=== PATIENT | male | born 1980 | race African-American/Black ===

== ENCOUNTER 2020-11-05 16:42 | Observation (INO) ==
[2020-11-05] MEDS ORDERED: SODIUM CHLORIDE 0.9% 1,000 ML IV STA (17:06)
[2020-11-05] MEDS ORDERED: LORazepam 2 MG/1 ML VIAL IV STA (17:06)
[2020-11-05 17:18] LABS: Basophils # 0.1 10*3/uL (0.0-0.2); Basophils % 1.3 % (0.0-0.8); Eosinophils % 0.3 % (0.00-10.9); Hematocrit 43.3 VOL% (42.0-52.0); Hemoglobin 14.7 GM/DL (14.0-18.0); Immature Granulocytes % 0.4 %; Immature Granulocytes Absolute 0.04 #; Lymphocytes % 20.9 % (21.2-54.2); Mean Corpuscular HGB Conc 33.9 GM/DL (32-36); Mean Corpuscular Volume 96.4 FL (87-102); Mean Platelet Volume 9.1 FL (9.6-12.0); Monocytes % 9.7 % (1.7-12.7); Neutrophils % 67.4 % (38.7-73.9); Platelet Count 391 T/CUMM (130-400); Red Blood Count 4.49 MC/CUMM (3.8-5.5); Red Cell Distribution Width 12.5 % (9.3-17.3); White Blood Count 9.5 T/CUMM (4-12)
[2020-11-05 17:37] LABS: Bilirubin,Total 1.2 MG/DL (0.2-1.0); Osmolality,Calculated 273.7 MOS/KG (273-304); Potassium 3.3 MMOL/L (3.5-5.1); Total Protein 9.6 G/DL (6.4-8.3)
[2020-11-05 18:08] LABS: ABG Base Excess -4.9 MMOL/L (-2.5-2.5); ABG HCO3 20.4 MMOL/L (20-26); ABG Oxygen Saturation 98.4 % (95-100); ABG PCO2 26.1 MM HG (35-48); ABG PH 7.441 (7.35-7.45); ABG TCO2 15.6 MMOL/L (23-27); Allen Test Positive; Pt O2 Delivery Device Room Air
[2020-11-05 19:04] LABS: Barbiturates Screen,Urine Negative (Negative); Benzodiazepines Screen,Urine Negative (Negative); Cannabinoid Screen,Urine Negative (Negative); Opiate Screen,Urine Negative (Negative); Phencyclidine Screen,Urine Negative (Negative)
[2020-11-05] MEDS ORDERED: DEXTROSE 50% 25 GM/50 ML VIAL IV PRN (19:48)
[2020-11-05] MEDS ORDERED: DOCUSATE SODIUM 100 MG CAPSULE PO PRN (19:48)
[2020-11-05] MEDS ORDERED: ACETAMINOPHEN 325 MG TABLET PO PRN (19:48)
[2020-11-05] MEDS ORDERED: ZALEPLON 5 MG CAPSULE PO PRN (19:48)
[2020-11-05] MEDS ORDERED: GLUCAGON 1 MG VIAL IM PRN (19:48)
[2020-11-05] MEDS ORDERED: SIMETHICONE CHEW 125 MG TABLET PO PRN (19:48)
[2020-11-05] MEDS ORDERED: diphenhydrAMINE CAP 25 MG CAPSULE PO PRN (19:48)
[2020-11-05] MEDS ORDERED: hydrALAZINE 20 MG/1 ML VIAL IV PRN (19:48)
[2020-11-05] MEDS ORDERED: CALCIUM CARBONATE CHEW 500 MG TABLET PO PRN (19:48)
[2020-11-05] MEDS ORDERED: ONDANSETRON 4 MG/2 ML VIAL IV PRN (19:48)
[2020-11-05] MEDS ORDERED: ALBUTEROL 2.5 MG/3 ML NEB RESP TX PRN (19:48)
[2020-11-05] MEDS ORDERED: NICOTINE 21 MG/24 HR PATCH TRANSDERM PRN (19:48)
[2020-11-05] MEDS ORDERED: ALUMINUM/MAGNES/SIMETH MAX STR 30 ML UDCUP PO PRN (19:48)
[2020-11-05] MEDS ORDERED: guaiFENesin/DM ER 600-30 MG TABLET PO PRN (19:48)
[2020-11-05] MEDS ORDERED: ASPIRIN 325 MG TABLET PO STA (19:52)
[2020-11-05] MEDS ORDERED: NITROGLYCERIN 2% OINT 1 INCH/GM PACK TOP STA (19:52)
[2020-11-05] MEDS: SODIUM CHLORIDE 0.9% 1,000 ML IV SCH (21:21)
[2020-11-05] MEDS: ENOXAPARIN 40 MG/0.4 ML SYRINGE SUBCUT SCH (22:19)
[2020-11-05] MEDS: FOLIC ACID 1 MG TABLET PO SCH (22:19)
[2020-11-05] MEDS: POTASSIUM CHLORIDE 20 MEQ TABLET PO SCH (22:19)
[2020-11-05] MEDS: CYANOCOBALAMIN 100 MCG TABLET PO SCH (22:19)
[2020-11-06 05:25] LABS: Basophils # 0.1 10*3/uL (0.0-0.2); Eosinophils # 0.1 10*3/uL (0.0-0.87); Eosinophils % 1.4 % (0.00-10.9); Hematocrit 38.4 VOL% (42.0-52.0); Hemoglobin 12.8 GM/DL (14.0-18.0); Immature Granulocytes % 0.4 %; Immature Granulocytes Absolute 0.03 #; Lymphocytes # 1.9 10*3/uL (1.4-4.0); Lymphocytes % 23.8 % (21.2-54.2); Mean Corpuscular HGB Conc 33.3 GM/DL (32-36); Mean Corpuscular Volume 98.5 FL (87-102); Mean Platelet Volume 9.8 FL (9.6-12.0); Monocytes % 10.4 % (1.7-12.7); Platelet Count 303 T/CUMM (130-400); Red Cell Distribution Width 12.6 % (9.3-17.3); White Blood Count 7.8 T/CUMM (4-12)
[2020-11-06 05:36] LABS: Albumin 3.9 G/DL (3.4-5.0); Bilirubin,Total 1.8 MG/DL (0.2-1.0); Calcium 8.7 MG/DL (8.5-10.1); Osmolality,Calculated 276.4 MOS/KG (273-304); Potassium 3.9 MMOL/L (3.5-5.1); Total Protein 7.7 G/DL (6.4-8.3)
[2020-11-06 06:14] LABS: Hepatitis B Core IgM Quant < 0.05 Index; Hepatitis B Surface Ag Quant 0.12 Index; Hepatitis B Surface Ag Result Non-Reactive (NonReactive); Hepatitis C Virus Ab Quant 0.06 Index; Hepatitis C Virus Ab Result Non-Reactive (NonReactive)
[2020-11-06] MEDS: CYANOCOBALAMIN 100 MCG TABLET PO SCH ×2 (09:24→20:59)
[2020-11-06] MEDS: FOLIC ACID 1 MG TABLET PO SCH ×2 (09:25→20:56)
[2020-11-06] MEDS: POTASSIUM CHLORIDE 20 MEQ TABLET PO SCH (09:25)
[2020-11-06] MEDS: MULTIVITAMIN (CENTRUM) TABLET PO SCH (09:25)
[2020-11-06] MEDS: SODIUM CHLORIDE 0.9% 1,000 ML IV SCH ×3 (11:16→21:49)
[2020-11-06] MEDS: PANTOPRAZOLE 20 MG TABLET PO SCH (14:33)
[2020-11-06] MEDS: ENOXAPARIN 40 MG/0.4 ML SYRINGE SUBCUT SCH (20:56)
[2020-11-07 05:50] LABS: Basophils % 0.7 % (0.0-0.8); Eosinophils # 0.2 10*3/uL (0.0-0.87); Eosinophils % 2.7 % (0.00-10.9); Hematocrit 40.7 VOL% (42.0-52.0); Hemoglobin 13.5 GM/DL (14.0-18.0); Immature Granulocytes % 0.3 %; Immature Granulocytes Absolute 0.02 #; Lymphocytes % 33.4 % (21.2-54.2); Mean Corpuscular HGB Conc 33.2 GM/DL (32-36); Mean Corpuscular Volume 98.8 FL (87-102); Mean Platelet Volume 9.6 FL (9.6-12.0); Monocytes % 11.3 % (1.7-12.7); Neutrophils % 51.6 % (38.7-73.9); Platelet Count 294 T/CUMM (130-400); Red Blood Count 4.12 MC/CUMM (3.8-5.5); Red Cell Distribution Width 11.9 % (9.3-17.3)
[2020-11-07 06:22] LABS: Calcium 9.1 MG/DL (8.5-10.1); Osmolality,Calculated 272.7 MOS/KG (273-304)
[2020-11-07 08:25] VITALS: BP 112/71
[2020-11-07] MEDS: MULTIVITAMIN (CENTRUM) TABLET PO SCH (09:03)
[2020-11-07] MEDS: PANTOPRAZOLE 20 MG TABLET PO SCH (09:04)
[2020-11-07] MEDS: CYANOCOBALAMIN 100 MCG TABLET PO SCH (09:04)
[2020-11-07] MEDS: POTASSIUM CHLORIDE 20 MEQ TABLET PO SCH (09:04)
[2020-11-07] MEDS: FOLIC ACID 1 MG TABLET PO SCH (09:04)
== END 2020-11-07 11:30 | disposition home or self-care (01) ==
LOC: N.ED 16:42 → N.EDINP 16:42 → SUATTDRO 19:48 → N.EDINP 21:52 → N.TELES 22:03
PROVIDERS: ADMIT Internal Medicine; ATTEND Family Medicine

== ENCOUNTER 2021-07-21 19:31 | Inpatient (IN) ==
[2021-07-21] MEDS ORDERED: NALOXONE 0.4 MG/ML VIAL ONE (19:48)
[2021-07-21] MEDS ORDERED: NALOXONE 0.4 MG/ML VIAL IV STA (20:00)
[2021-07-21] MEDS ORDERED: SODIUM CHLORIDE 0.9% 1,000 ML IV STA (20:00)
[2021-07-21] MEDS ORDERED: ETOMIDATE 20 MG/10 ML VIAL IV STA (20:02)
[2021-07-21] MEDS ORDERED: ROCURONIUM 100 MG/10 ML VIAL IV STA (20:02)
[2021-07-21] MEDS ORDERED: VECURONIUM 10 MG VIAL IV STA (20:07)
[2021-07-21 20:15] LABS: Basophils # 0.1 10*3/uL (0.0-0.2); Basophils % 0.7 % (0.0-0.8); Eosinophils # 0.2 10*3/uL (0.0-0.87); Eosinophils % 1.5 % (0.00-10.9); Hematocrit 41.4 VOL% (42.0-52.0); Immature Granulocytes % 0.9 %; Immature Granulocytes Absolute 0.13 #; Lymphocytes # 6.4 10*3/uL (1.4-4.0); Lymphocytes % 46.5 % (21.2-54.2); Mean Corpuscular HGB Conc 31.4 GM/DL (32-36); Mean Corpuscular Volume 103.8 FL (87-102); Mean Platelet Volume 9.6 FL (9.6-12.0); Monocytes % 9.6 % (1.7-12.7); Neutrophils % 40.8 % (38.7-73.9); Platelet Count 357 T/CUMM (130-400); Red Blood Count 3.99 MC/CUMM (3.8-5.5); Red Cell Distribution Width 12.7 % (9.3-17.3); White Blood Count 13.7 T/CUMM (4-12)
[2021-07-21 20:24] LABS: PT Patient Result 10.8 SECS (10.5-12.0)
[2021-07-21 20:38] LABS: Albumin 4.5 G/DL (3.4-5.0); Bilirubin,Total 0.8 MG/DL (0.20-1.00); Calcium 8.7 MG/DL (8.5-10.1); Potassium 2.8 MMOL/L (3.5-5.1); Total Protein 8.1 G/DL (6.4-8.2)
[2021-07-21 20:55] LABS: ABG Base Excess -8.4 MMOL/L (-2.5-2.5); ABG HCO3 17.7 MMOL/L (20-26); ABG Oxygen Saturation 98.2 % (95-100); ABG PCO2 47.7 MM HG (35-48); ABG PH 7.221 (7.35-7.45); ABG TCO2 17.8 MMOL/L (23-27)
[2021-07-21 21:03] LABS: Eosinophils 3 % (0-10); Lymphocytes 47 % (20-55); Macrocytosis 1+; Nucleated Red Blood Cells 1 (0-5); Platelet Estimate Increased; Segmented Neutrophils 43 % (50-85); Total Cells Counted 100
[2021-07-21] MEDS ORDERED: POTASSIUM CHLORIDE RIDER 20 MEQ/100 ML PREMIX IV STA (21:08)
[2021-07-21] MEDS ORDERED: THIAMINE INJ 100 MG, FOLIC ACID INJ 1 MG, MAGNESIUM SULF INJ 2 GM, MULTIVITAMIN INJ 10 ... IV ONE (21:08)
[2021-07-21] MEDS ORDERED: POTASSIUM CHLORIDE RIDER 20 MEQ/200 ML PREMIX IV ONE (21:14)
[2021-07-21 21:18] LABS: Bilirubin,Urine Negative (Negative); Blood, Urine Small mg/dL (Negative); Glucose,Urine (UA) 50 mg/dL (Negative); Hyaline Casts,Urine 5 /LPF (0-3); Ketones,Urine Negative (Negative); Mucus,Urine Occasional /LPF (Occasional); Nitrite,Urine Negative (Negative); Protein,Urine 100 MG/DL; RBC,Urine 3 /HPF (0-4); Urine Appearance CLEAR (Clear); Urine Color Yellow (Yellow); Urine Specific Gravity 1.008 (1.001-1.035); Urine Urobilinogen < 2.0 EU/DL (0.2-1.0)
[2021-07-21] MEDS: POTASSIUM CHLORIDE RIDER 10 MEQ/100 ML PREMIX IV SCH ×2 (21:19→22:30)
[2021-07-21 21:21] LABS: Barbiturates Screen,Urine Negative (Negative); Benzodiazepines Screen,Urine Negative (Negative); Cannabinoid Screen,Urine Negative (Negative); Opiate Screen,Urine Negative (Negative); Phencyclidine Screen,Urine Negative (Negative)
[2021-07-21] MEDS ORDERED: propofoL 200 MG/20 ML VIAL IV STA (22:14)
[2021-07-21] MEDS ORDERED: ALBUTEROL 2.5 MG/3 ML NEB RESP TX PRN (22:39)
[2021-07-21 23:36] VITALS: BP 117/69
[2021-07-22] MEDS: POTASSIUM CHLORIDE RIDER 10 MEQ/100 ML PREMIX IV SCH ×2 (00:37→01:27)
[2021-07-22] MEDS ORDERED: ENOXAPARIN 80 MG/0.8 ML SYRINGE SUBCUT ONE (01:16)
[2021-07-22 04:40] LABS: Basophils % 0.3 % (0.0-0.8); Eosinophils # 0.1 10*3/uL (0.0-0.87); Eosinophils % 0.5 % (0.00-10.9); Hematocrit 37.6 VOL% (42.0-52.0); Hemoglobin 12.4 GM/DL (14.0-18.0); Immature Granulocytes % 0.7 %; Immature Granulocytes Absolute 0.09 #; Lymphocytes # 3.1 10*3/uL (1.4-4.0); Lymphocytes % 22.2 % (21.2-54.2); Mean Corpuscular Volume 99.2 FL (87-102); Mean Platelet Volume 9.5 FL (9.6-12.0); Monocytes % 9.4 % (1.7-12.7); Neutrophils % 66.9 % (38.7-73.9); Platelet Count 309 T/CUMM (130-400); Red Blood Count 3.79 MC/CUMM (3.8-5.5); Red Cell Distribution Width 12.7 % (9.3-17.3); White Blood Count 13.8 T/CUMM (4-12)
[2021-07-22 04:47] LABS: ABG Oxygen Saturation 99.7 % (95-100); ABG PCO2 37.7 MM HG (35-48); ABG PH 7.372 (7.35-7.45); ABG TCO2 19.3 MMOL/L (23-27)
[2021-07-22 05:11] LABS: Osmolality,Calculated 270.7 MOS/KG (273-304); Risk Ratio 1.72; Thyroid Stimulating Hormone 0.616 uIU/ml (0.358-3.74); VLDL Cholesterol 7.8 MG/DL
[2021-07-22] MEDS ORDERED: DEXTROSE 50% 25 GM/50 ML VIAL IV ONE (05:16)
[2021-07-22] MEDS: DEXTROSE 50% 25 GM/50 ML VIAL IV PRN ×2 (05:25→07:25)
[2021-07-22] MEDS ORDERED: ENOXAPARIN 80 MG/0.8 ML SYRINGE SUBCUT SCH (09:00)
[2021-07-22] MEDS ORDERED: ENOXAPARIN 40 MG/0.4 ML SYRINGE SUBCUT SCH (09:00)
[2021-07-22] MEDS: DEXTROSE 5% 1,000 ML IV SCH ×3 (09:45→20:52)
[2021-07-22] MEDS ORDERED: HALOPERIDOL 5 MG/ML AMP IM ONE (09:46)
[2021-07-22] MEDS: PANTOPRAZOLE 40 MG VIAL IV SCH (10:05)
[2021-07-22] MEDS: ALBUTEROL/IPRATROPIUM 3 ML NEB RESP TX SCH ×3 (10:18→19:20)
[2021-07-22] MEDS ORDERED: LORazepam 2 MG/1 ML VIAL IV PRN (11:27)
[2021-07-22] MEDS ORDERED: THIAMINE INJ 100 MG, FOLIC ACID INJ 1 MG, MULTIVITAMIN INJ 10 ML in SODIUM CHLORIDE 0.9... IV SCH (23:00)
[2021-07-23] MEDS: ALBUTEROL/IPRATROPIUM 3 ML NEB RESP TX SCH ×2 (00:47→07:07)
[2021-07-23 05:03] LABS: Calcium 8.4 MG/DL (8.5-10.1); Osmolality,Calculated 267.1 MOS/KG (273-304); Potassium 3.6 MMOL/L (3.5-5.1)
[2021-07-23] MEDS: DEXTROSE 5% 1,000 ML IV SCH (07:15)
[2021-07-23] MEDS ORDERED: ENOXAPARIN 40 MG/0.4 ML SYRINGE SUBCUT SCH (09:00)
[2021-07-23] MEDS: PANTOPRAZOLE 40 MG VIAL IV SCH (10:07)
== END 2021-07-23 11:30 | disposition home or self-care (01) | DRG 208 ==
LOC: N.ED 19:31 → SUATTDRO 21:54 → N.EDINP 21:54 → N.ICU 23:14
PROVIDERS: ADMIT Internal Medicine; ATTEND Internal Medicine Geriatric Medicine